=== PATIENT | female | born 1985 | race Caucasian/White ===

== ENCOUNTER 2017-07-30 21:59 | Outpatient (CLI) | payer OTHER ==
[2017-07-30] MEDS ORDERED: PRENATAL 19 TA1 EACH PO (22:35)
[2017-07-30] MEDS ORDERED: PROGESTERO50 MG/1 M1 IM (22:36)
== END 2017-07-31 06:03 | disposition home or self-care (01) ==
LOC: OBS/DEL 21:59
DX: O60.02 Preterm labor without delivery, second trimester (principal); Z34.82 Encounter for supervision of other normal pregnancy, second trimester

== ENCOUNTER 2017-09-05 17:06 | Outpatient (CLI) | payer OTHER ==
[~2017-09-05 17:06] MED LIST: PRENATAL 19 TA1 EACH PO; PROGESTERO50 MG/1 M1 IM
== END 2017-09-05 17:29 | disposition home or self-care (01) ==
LOC: NST 17:06 → OBS/DEL 17:06 → NST 17:29
DX: Z34.03 Encounter for supervision of normal first pregnancy, third trimester (principal)

== ENCOUNTER 2017-10-31 13:10 | Inpatient (IN) | payer OTHER ==
[~2017-10-31] VITALS: Ht 154.9 cm; Wt 68.0 kg
== END 2017-11-03 12:10 | disposition home or self-care (01) | DRG 775 ==
LOC: LDR 11-01 06:30 → OB/GYN 11-01 13:34
PROC: 10E0XZZ Delivery of Products of Conception, External Approach (ICD-10-PCS; principal; 2017-11-01)
PROC: 10907ZC Drainage of Amniotic Fluid, Therapeutic from Products of Conception, Via Natural or Artificial Opening (ICD-10-PCS; 2017-11-01)
PROC: 4A033R1 Measurement of Arterial Saturation, Peripheral, Percutaneous Approach (ICD-10-PCS; 2017-11-01)
PROC: 4A1HXCZ Monitoring of Products of Conception, Cardiac Rate, External Approach (ICD-10-PCS; 2017-11-01)
DX: O99.02 Anemia complicating childbirth (principal); Z3A.37 37 weeks gestation of pregnancy; Z37.0 Single live birth